=== PATIENT | male | born 1950 | race Caucasian/White ===

== ENCOUNTER → 2017-04-29 | Outpatient (CLI) | payer OTHER ==
[~2017-04-29] MED LIST: AMINOPHYLLINE INJ 250 MG/10 ML VIAL ONE; ASPI-110 PO; LISI-515 PO; REGADENOSON INJ 0.4 MG/5 ML SYR ONE
--- NOTE | 2017-04-29 13:51 | RADRPT ---
EXAM DATE/TIME: 04/29/2017 09:22 [place] COMPARISON: No previous studies available for comparison. INDICATIONS : Chest pain, shortness of breath. Angina. DOSE: 25.6 mCi Tc99m Myoview at stress. 8.8 mCi Tc99m Myoview at rest. 0.4 mg Lexiscan STRESS SYMPTOMS: Shortness of breath. MEDICATIONS: 1.) 100mg mg Aminophylline IV EJECTION FRACTION: > 70% MEDICAL HISTORY : Cardiovascular disease. SURGICAL HISTORY : Angioplasty. ENCOUNTER: Initial ACUITY: 1 day PAIN SCALE: 0/10 LOCATION: Bilateral chest TECHNIQUE: The patient underwent pharmacologic stress with infusion of prescribed dose. Continuous ECG tracing was monitored during stress. Gated SPECT imaging was performed after stress and conventional SPECT i maging was performed at rest. The examination was performed on a SPECT/CT scanner, both attenuation and non-corrected datasets were reviewed. FINDINGS: DISTRIBUTION: The maximum perfused segment at stress is in the anterior wall. PERFUSION STUDY: The pattern of perfusion at stress is within normal limits. GATED STUDY: There is intact wall motion and thickening without hypokinetic or dyskinetic segments. CONCLUSION: No reversible perfusion defects or focal wall motion abnormalities. RISK CATEGORY: 1- Low Risk Baltazar Rodriguez MD on April 29, 2017 at 13:48 Board Certified Radiologist. This report was verified electronically.
== END ==
LOC: HRAD 08:36
PROVIDERS: ATTEND Family Medicine
DX: I20.9 Angina pectoris, unspecified (principal)
CPT/HCPCS: 78452; 93017; A9502; J0280; J2785

== ENCOUNTER → 2017-11-08 | Day surgery (SDC) | payer OTHER ==
[~2017-11-08] VITALS: Ht 188 cm; Wt 99.4 kg
[~2017-11-08] MED LIST changes: -AMINOPHYLLINE INJ 250 MG/10 ML VIAL ONE; -ASPI-110 PO; +ASPI1TAB57 PO; +BACITRACIN TOP OINT 15 GM TUBE ONE; +BUPIVACAINE HCL PF 0.25% 30 ML VIAL ONE; +CEPH-459 PO; +CHLORHEXIDINE GLUCONATE 2 % 1 PACK (2 CLOTHS) TOPICAL PRN; +DEXAMETHASONE SOD PHOS 4 MG/ML VIAL IV ONE; +DO NOT ADM ANY ANTICOAGULANT DRUGS PRN; +LACTATED RINGER'S 1000 ML IV PRN; +LIDOCAINE HCL 1% PF 5 ML SYRINGE OTHER ONE; +METOPROLOL TARTRATE 25 MG TAB PO PRN; +MIDAZOLAM HCL 2 MG/2 ML VIAL ONE; +ONDANSETRON HCL 4 MG/2 ML VIAL IV ONE; +ONDANSETRON HCL 4 MG/2 ML VIAL IV PUSH PRN; +PERC5TAB12 PO; +POVIDONE IODINE 5% (ANTISEPSIS KIT) 4 APPLICATIONS EACH NARE PRN; +PROPOFOL 200 MG/20 ML AMP IV ONE; -REGADENOSON INJ 0.4 MG/5 ML SYR ONE; +SODIUM CHLORID 0.9% 500 ML IV PRN; +SODIUM CHLORIDE 0.9% INJ 100 ML ONE; +oxyCODONE/ACETAMINOPHEN 5 MG/325 MG TAB PO PRN
[2017-11-08 10:12] LABS: AUTOMATED NEUTROPHIL # 4.2 TH/MM3 (1.8-7.7); BASOPHIL % 0.3 % (0.0-2.0); EOSINOPHIL # 0.1 TH/MM3 (0-0.4); EOSINOPHIL % 1.3 % (0.0-4.0); HEMATOCRIT 44.5 % (39.0-51.0); HEMOGLOBIN 14.9 GM/DL (13.0-17.0); LYMPH % 24.4 % (9.0-44.0); LYMPHOCYTE # 1.5 TH/MM3 (1.0-4.8); MEAN CORPUSCULAR HEMOGLOBIN 28.8 PG (27.0-34.0); MEAN CORPUSCULAR HGB CONC 33.5 % (32.0-36.0); MEAN PLATELET VOLUME 7.2 FL (7.0-11.0); MONO % 7.6 % (0.0-8.0); MONOCYTE # 0.5 TH/MM3 (0-0.9); NEUT % 66.4 % (16.0-70.0); PLATELET COUNT 314 TH/MM3 (150-450); RED BLOOD COUNT 5.18 MIL/MM3 (4.50-5.90); WHITE BLOOD COUNT 6.3 TH/MM3 (4.0-11.0)
--- NOTE | 2017-11-08 13:02 | PD.OP ---
Operative Report Date of Surgery: Nov 08, 2017 Preoperative Diagnosis: (1) Epididymal cyst (2) Orchalgia Postoperative Diagnosis: (1) Epididymal cyst (2) Orchalgia Procedure: Left orchiectomy/epididymectomy Anesthesia: General Surgeon: Suhail Dukes Critical Care Nurse Specialist(s): None Operation and Findings: Indication for procedures: Case of a pleasant 67-year-old gentleman with chronic left testicular pain who was recently worked up with a scrotal ultrasound that demonstrated a 3.8 cm left epididymal cyst. Patient presents today to undergo a left orchiectomy/epididymectomy. Patient was adamant about having the entire left testicle removed along with the epididymis. Operative procedures in detail: Patient was brought to the operating room suite placed supine on the OR table. He was then placed under general anesthesia. After appropriate timeout was undertaken, I proceeded with making a 3 cm transverse scrotal skin incision at the mid scrotal level with a #15 blade. The left testicle and epididymis was then delivered through this wound. Multiple clamps were placed across the spermatic cord and the cord was cut between the clamps and the specimen handed off. The remaining clamps were tied off with two-point 0 Vicryl stick ties. Hemostasis was also accomplished using the Bovie cautery. The free scrotal skin edges were then approximated in interrupted fashion utilizing 3.0 chromic sutures. Bacitracin ointment was applied at the wound site and covered with fluff gauze held in place with a scrotal supporter. The patient tolerated the procedures without complications and was transferred to the PACU in satisfactory condition. Suhail Dukes MD Nov 08, 2017 13:02
[2017-11-08 14:16] VITALS: BP 145/90; PULSE 85; RESP 16; TEMP 97.6; O2SAT 98
--- NOTE | 2017-11-08 15:14 | EKG ---
Date Performed: 11/08/2017 Time Performed: 09:55:06 PTAGE: 67 years EKG: Sinus rhythm INFERIOR MYOCARDIAL INFARCTION , OF INDETERMINATE AGE ABNORMAL ECG NO PREVIOUS TRACING DOCTOR: Humza Ramachandran Interpretating Date/Time 11/08/2017 15:10:50
== END | disposition home or self-care (01) ==
LOC: HSDC 09:15
PROVIDERS: ATTEND Urology
DX: N50.3 Cyst of epididymis (principal); I10 Essential (primary) hypertension
CPT/HCPCS: 00920; 54860; 85025; 88305; 93005; J0690; J1100; J2250; J2405; J3010; J7120